=== PATIENT | male | born 2000 | race Caucasian/White ===

== ENCOUNTER → 2023-04-06 | Outpatient (CLI) | payer OTHER | LOC: M RAD 15:04 → EDBD 15:30 | PROVIDERS: ATTEND Physician Assistant | DX: N50.811 Right testicular pain (principal); I86.1 Scrotal varices ==

== ENCOUNTER 2023-06-27 11:38 | Emergency (ER) | payer OTHER ==
[~2023-06-27] VITALS: Ht 188 cm; Wt 96.7 kg
[2023-06-27 11:38] VITALS: BP 143/67; TEMP 98.3; O2SAT 99
[2023-06-27] MEDS ORDERED: DOCU100C16 (11:45)
[2023-06-27] MEDS ORDERED: [UNRECOGNIZED DRUG - CODE] (11:45)
== END 2023-06-27 13:41 | disposition home or self-care (01) ==
LOC: M ED 11:38
DX: K64.4 Residual hemorrhoidal skin tags (principal)